=== PATIENT | male | born 1965 | race Caucasian/White ===

== ENCOUNTER → 2019-06-04 | Outpatient (CLI) | payer OTHER ==
--- NOTE | 2019-06-05 19:31 | MR ---
EXAMINATION TYPE: MR Prostate wo/w con DATE OF EXAM: 06/04/2019 COMPARISON: Prostate ultrasound June 05, 2015 IMAGE QUALITY: . INDICATION: Malignant neoplasm of prostate PSA: 5.3 ng/ml on May 30, 2015 increased to 10.2 on March 10, 2019 Recent Biopsy and Date: November 16, 2015 Pathology Report (If Applicable): Right lateral base Mark score 3+3 = 6 TECHNIQUE: Examination was performed using a 3T MRI without an endorectal coil. Multiparametric imaging was perf ormed with T2 multiplanar sequences, axial diffusion weighted imaging and dynamic contrast enhanced i maging, utilizing 9 mL intravenous Gadavist gadolinium contrast. FINDINGS: There is no clinically significant cancer identified. PROSTATE VOLUME: 4.9 cm SI x 4.3 cm AP x 5.3 cm LR Vol= 58.5 cc PSA DENSITY: 7.02 ng/ml/cc Peripheral zone is thought overall normal on the DWI/ADC imaging. Transitional zone shows overall heterogeneity without suspicious areas of hypointensity on T2-weighte d images. Prostatic capsule is maintained. Seminal vesicles felt within normal limits. No suspicious adjacent a denopathy. Bladder shows mild trabeculation and wall thickening. Small fat-containing left inguinal hernia incid entally noted axial image 18. Visualized osseous structures are intact. No concerning pelvic fluid co llection. Disc desiccation and moderate disc space narrowing lumbosacral junction. IMPRESSION: Heterogeneous enlarged prostate consistent with BPH. A focus of clinically significant cancer is not identified. Highest Assessment Category: 1 MRI Stage: T1c N0 M0 based on review of pelvic images. False negative rates for MRI range from 5-20% depending on risk profile. Assessment Categories: 1 ? Very low (clinically significant cancer is highly unlikely to be present) 2 ? Low (clinically significant cancer is unlikely to be present) 3 ? Intermediate (the presence of clinically significant cancer is equivocal) 4 ? High (clinically significant cancer is likely to be present) 5 ? Very high (clinically significant cancer is highly likely to be present) Locations: PZ = peripheral zone; TZ = transition zone CZ=central zone; AFS = anterior fibromuscular stroma a=anterior half (i.e. PZa=anterior half of peripheral zone); pm= posterior medial (i.e PZpm) pl = postero-lateral (i.e. PZpl); p = posterior half (i.e. TZp) ; a = anterior half (i.e TZa or P Za) Other: N=no or no; E= equivocal; Y=yes EPE = extraprostatic extension NVB = neurovascular bundle NA = not applicable/not available
== END | disposition home or self-care (01) ==
LOC: RADMRIMAIN 07:12
PROVIDERS: ATTEND Urology
DX: C61 Malignant neoplasm of prostate (principal)
CPT/HCPCS: 72197; A9585

== ENCOUNTER → 2022-02-07 | Outpatient (CLI) | payer OTHER ==
--- NOTE | 2022-02-07 20:44 | MR ---
EXAMINATION TYPE: MR Prostate wo/w con DATE OF EXAM: 02/07/2022 7:01 AM COMPARISON: MRI 06/03/2026 month ultrasound 06/05/2015. CLINICAL INDICATION:Male, 56 years old with history of C61 PROSTATE CA; TECHNIQUE: Multi-planar, multi-sequence imaging of the pelvis is performed prior to and following the uncomplicated administration of bolus intravenous gadolinium. CONTRAST: 7 Gadavist Interpretive Criteria: PI-RADS v2.1 SERUM PSA: 14.9 09/19/2021 13.1 03/14/2021 12.1 09/15/2019. SURGICAL PATHOLOGY: Biopsy 10/13/2019, left base adenocarcinoma [place] 3+4 = 7 FINDINGS: Prostatic dimensions: 5.4 x 3.5 x 5.5 cm. Ellipsoid Volume: 54.43 (PSA density=0.27 ng/mL/mL) CENTRAL GLAND (Central and Transition Zones/CZ+TZ): Multiple bilateral, heterogenous appearing hypertrophic stromal nodules, without suspicious lesion. M edian lobe hypertrophy with protrusion into the base of the bladder. (PI-RADS 2) PERIPHERAL ZONE (PZ): No evidence of masslike abnormality, or localized perfusional hypervascularity, to further suggest a focus of clinically significant prostate cancer. Minimal curvilinear (PI-RADS 2) SEMINAL VESICLES (SV): Symmetric and unremarkable. PERIPROSTATIC TISSUES: Unremarkable. LYMPH NODES: No enlarged pelvic lymph node. REMAINING PELVIS: Circumferential bladder wall thickening with trabeculations likely secondary to chronic bladder outfl ow obstruction. No abnormal free or organized intrapelvic fluid collection. No pathologic bowel dilation or mural thickening. Left fat-containing inguinal hernia. OSSEOUS STRUCTURES: No suspicious osseous abnormality. IMPRESSION: 1. No specific features for high-risk prostate cancer. Maximum PI-RADS score: 2. 2. Moderate BPH, estimated gland volume 54 mL. 3. No suspicious osseous lesion. No lymphadenopathy. No evidence of prostate adenocarcinoma involving the periprostatic tissues.
== END | disposition home or self-care (01) ==
LOC: RADMRIMAIN 06:02
PROVIDERS: ATTEND Urology
DX: C61 Malignant neoplasm of prostate (principal); N40.0 Benign prostatic hyperplasia without lower urinary tract symptoms
CPT/HCPCS: 72197; A9585

== ENCOUNTER → 2022-10-15 | Outpatient (CLI) | payer OTHER ==
--- NOTE | 2022-10-16 09:11 | CT ---
EXAMINATION TYPE: CT chest w con CT DLP: 333.3 mGycm, Automated exposure control for dose reduction was used. DATE OF EXAM: 10/15/2022 6:27 PM COMPARISON: CT 04/28/2022. CLINICAL INDICATION:Male, 56 years old with history of R91.1 SOLITARY PULMONARY NODULE; PHH, SOLITARY PULMONARY NODULE TECHNIQUE: Multiple axial images were obtained through the chest. Sagittal and coronal reformats were created for review. Contrast used:100ml mL of Isovue 300 with IV Contrast (None if empty) Oral contrast used: (None if empty) FINDINGS: LUNGS/ PLEURA: Few scattered suspected intrafissural lymph nodes are present. Including along the rig ht minor and major fissures. Stable appearance of 5 mm left lower lobe pulmonary nodule image 52 othe r peripheral based nodular densities present and also stable. Left lower lobe calcified granuloma pre sent. Left upper lobe groundglass pulmonary nodule measuring 8 mm is stable. Right intrafissural lymp h node which is measured on prior 10 x 3 mm anteriorly is compatible with intrafissural lymph node. AIRWAY: Patent and unremarkable. HEART: Size within normal limits. MEDIASTINUM: No gross evidence of adenopathy. Small hiatal hernia is present. VASCULATURE: No aortic aneurysm. No central filling defect to suggest pulmonary embolus. No evidence for aortic dissection. MUSCULOSKELETAL: Mild disc degeneration changes are present throughout the thoracolumbar spine. SOFT TISSUES/LYMPH NODES: Unremarkable. LOWER NECK: No significant findings. UPPER ABDOMEN: No significant findings. IMPRESSION: 1. Stable pulmonary nodules no new or enlarging pulmonary nodules. Consider attention follow-up imag ing in 12 months. 2. Small hiatal hernia. 3. No evidence for pulmonary embolus or aortic dissection.
== END | disposition home or self-care (01) ==
LOC: RADCTMAIN 17:23
PROVIDERS: ATTEND Internal Medicine
DX: K44.9 Diaphragmatic hernia without obstruction or gangrene (principal); R91.8 Other nonspecific abnormal finding of lung field
CPT/HCPCS: 71260; Q9967

== ENCOUNTER → 2023-02-27 | Outpatient (CLI) | payer OTHER | END | disposition home or self-care (01) | LOC: LABWHC1 07:36 | PROVIDERS: ATTEND Urology | DX: C61 Malignant neoplasm of prostate (principal) | CPT/HCPCS: 36415; 84153 ==

== ENCOUNTER → 2023-04-02 | Outpatient (CLI) | payer OTHER ==
--- NOTE | 2023-04-06 15:49 | PE ---
EXAMINATION TYPE: PET CT fusion skull to thigh DATE OF EXAM: 04/02/2023 COMPARISON: CT chest 10/15/2022 Prior PET/CT: None HISTORY: Prostate cancer TECHNIQUE: Following the intravenous administration of 6.06 mCi gallium-68 Illucix, whole body image s are performed from the skull base to the midthigh. Images are reviewed on the computer in the negro nal, axial, and sagittal planes. Reconstructed rotating images are created on independent workstatio n and reviewed on the computer. A localization and attenuation correction CT is performed in conjun ction with the PET scan. DLP: 476.2 mGycm SCAN: Initial FINDINGS: NECK: No abnormal uptake THORAX: No abnormal uptake ABDOMEN: No abnormal uptake PELVIS: Subtle mild uptake is within the posterior lateral left prostate. This has an SUV value of 11 .53. OSSEOUS STRUCTURES: No abnormal uptake LOCALIZATION CT: Small hiatal hernia. COMPARISON: None IMPRESSION: 1. Within the prostate likely correlates with the patient's prostate cancer. 2. No suspicious changes to suggest metastatic disease.
== END | disposition home or self-care (01) ==
LOC: RADPETMAIN 09:27
PROVIDERS: ATTEND Urology
DX: C61 Malignant neoplasm of prostate (principal)
CPT/HCPCS: 78815; A9596

== ENCOUNTER → 2023-06-03 | Outpatient (CLI) | payer OTHER ==
[2023-06-03 11:17] LABS: Basophils # (A) 0.02 X 10*3/uL (0.00-0.10); Basophils % (A) 0.4 %; Eosinophils # (A) 0.11 X 10*3/uL (0.04-0.35); Eosinophils % (A) 2.3 %; HCT 44.3 % (39.6-50.0); Immature Grans, Automated 0 %; Lymphocytes # (A) 2.02 X 10*3/uL (0.90-5.00); Lymphocytes % (A) 42.3 %; MCH 29.6 pg (27.0-32.0); MCHC 33.9 g/dL (32.0-37.0); MCV 87.4 FL (80.0-97.0); Mean Platelet Volume 9.2 FL (9.5-12.2); Monocytes # (A) 0.39 X 10*3/uL (0.20-1.00); Monocytes % (A) 8.2 %; NRBC Per 100 WBC 0 X 10*3/uL (0.00-0.01); Neutrophils # (A) 2.24 X 10*3/uL (1.80-7.70); Neutrophils % (A) 46.8 %; Platelet Count 205 X 10*3/uL (140-440); RBC 5.07 X 10*6/uL (4.40-5.60); WBC 4.78 X 10*3/uL (4.50-10.00)
[2023-06-03 11:18] LABS: Appearance,Urine Clear (Clear); Bilirubin,Urine Negative (Negative); Blood,Urine Negative (Negative); Color,Urine Yellow (Yellow); Ketones,Urine Negative (Negative); Nitrite,Urine Negative (Negative); PH, Urine 6.5; Specific Gravity,Urine 1.023 (1.001-1.030); Urobilinogen,Urine 0.2 E.U./DL
[2023-06-03 11:23] LABS: BUN/Creat Ratio 14.73 Ratio (12.00-20.00); Blood Urea Nitrogen 16.2 mg/dL (9.0-27.0); Chloride 103 mmol/L (96-109); Glucose 98 mg/dL (70-110); Potassium 4.4 mmol/L (3.5-5.5); Sodium 139 mmol/L (135-145)
== END | disposition home or self-care (01) ==
LOC: LABWHC1 07:50
PROVIDERS: ATTEND Urology
DX: Z01.812 Encounter for preprocedural laboratory examination (principal); C61 Malignant neoplasm of prostate
CPT/HCPCS: 36415; 80048; 81003; 85025; 86850; 86900; 86901; 87086

== ENCOUNTER 2023-06-12 05:35 | Day surgery (SDC) | payer OTHER ==
--- NOTE | 2023-06-11 10:56 | P.HPIHPCON ---
History of Present Illness H&P Date: 06/11/23 Chief Complaint: Prostate cancer This is a 57-year-old male with history of Hardy 7 prostate cancer, initially was on active surveillance PSA continued to rise, at this point definitive treatment options were discussed with him. Option of radiation versus robotic prostatectomy was discussed in details. Risk and benefit of each approach was discussed. He agreed to proceed with a robotic radical prostatectomy, aware of the risk which includes but not limited to bleeding, infection, urinary incontinence, erectile dysfunction, discussed risk of cancer recurrence and potential of needing additional treatments. Discussed also risk of injury to nearby organs. Risk of anesthesia was also discussed. He understood all the risk and agreed to proceed Consent for Procedure: I have explained the operation/procedure to the patient, including the risks, benefits, side effects, alternative therapies (including not receiving the proposed treatment or service), the likelihood of the patient achieving his/her goals, and potential recuperation problems for the procedure/sedation/analgesia, as well as any blood products, if indicated. I also explained to the patient the risks, benefits and side effects of the alternatives, as well as the risks related to not receiving the proposed procedure, care, treatment, or services. Past Medical History Past Medical History: Cancer, Prostate Disorder Additional Past Medical History / Comment(s): prostate History of Any Multi-Drug Resistant Organisms: None Reported Additional Past Surgical History / Comment(s): sinus surgery Past Anesthesia/Blood Transfusion Reactions: No Reported Reaction Smoking Status: Never smoker - Past Family History Mother Family Medical History: Cancer Additional Family Medical History / Comment(s): lymphoma Father Family Medical History: Cancer Additional Family Medical History / Comment(s): prostate Brother(s) Family Medical History: Cancer Additional Family Medical History / Comment(s): prostate Medications and Allergies Home Medications Medication Instructions Recorded Confirmed Type Escitalopram [Lexapro] 10 mg PO DAILY 06/09/23 06/09/23 History Allergies Allergy/AdvReac Type Severity Reaction Status Date / Time No Known Allergies Allergy Verified 06/09/23 10:09 Surgical - Exam - General no distress, no pain - Eyes normal ocular movement, no pale - ENT normal nares, normal mucosa - Respiratory normal expansion, normal respiratory effort - Abdomen Abdomen: soft, non tender - Psychiatric oriented to time, oriented to person, oriented to place Assessment and Plan Assessment: OR for robotic radical prostatectomy with bilateral pelvic lymp node dissection dissection
[2023-06-12] MEDS ORDERED: MIDAZOLAM 2 MG/2 ML VIAL IV PRN (05:38)
[2023-06-12] MEDS ORDERED: LIDOCAINE 1% (10MG/ML) FOR IV START INTRADERMA PRN (05:38)
[2023-06-12] MEDS ORDERED: HYDROmorphone 0.5 MG/0.5 ML SYRINGE IVP PRN (05:38)
[2023-06-12] MEDS: LACTATED RINGERS 1,000 ML IV SCH (06:15)
[2023-06-12] MEDS: ONDANSETRON 4 MG/2 ML VIAL IVP ONE (06:25)
[2023-06-12] MEDS: DEXAMETHASONE SOD PHOSPHATE 4 MG/ML 1 ML VIAL IV ONE (06:25)
[2023-06-12] MEDS: HEPARIN SODIUM,PORCINE 5,000 UNIT/ML 1 ML VIAL SQ PRN (06:30)
[2023-06-12] MEDS ORDERED: NEOSTIGMINE 1 MG/ML 10 ML VIAL ONE (06:55)
[2023-06-12] MEDS ORDERED: KETAMINE HCL IN 0.9 % NACL 50 MG/5 ML SYRINGE ONE (06:55)
[2023-06-12] MEDS ORDERED: SUCCINYLCHOLINE CHLORIDE 200 MG/10 ML VIAL IV ONE (06:55)
[2023-06-12] MEDS ORDERED: KETOROLAC 15 MG/ML 1 ML VIAL ONE (06:55)
[2023-06-12] MEDS ORDERED: ONDANSETRON 4 MG/2 ML VIAL ONE (06:55)
[2023-06-12] MEDS ORDERED: GLYCOPYRROLATE 0.2 MG/ML 2 ML VIAL ONE (06:55)
[2023-06-12] MEDS ORDERED: MIDAZOLAM 2 MG/2 ML VIAL ONE (06:55)
[2023-06-12] MEDS ORDERED: HYDROmorphone (PF) 1 MG/ML ONE (06:55)
[2023-06-12] MEDS ORDERED: fentaNYL (PF) 50 MCG/ML 2 ML AMP ONE (06:55)
[2023-06-12] MEDS ORDERED: PROPOFOL 10 MG/ML 20 ML VIAL IV ONE (06:55)
[2023-06-12] MEDS ORDERED: ROCURONIUM 10 MG/ML (5 ML VIAL) IV ONE (06:55)
[2023-06-12] MEDS ORDERED: LIDOCAINE 1% INJ 10MG/ML (20 ML MDV) ONE (06:55)
[2023-06-12] MEDS ORDERED: HYDROmorphone 1 MG/ML 1 ML SYRINGE IVP PRN (07:23)
[2023-06-12] MEDS: BUPIVACAINE (PF) 0.25% 30 ML VIAL SQ ONE ×2 (07:34→10:59)
--- NOTE | 2023-06-12 11:20 | P.OP ---
Date of Procedure: 06/12/23 Preoperative Diagnosis: Prostate cancer Postoperative Diagnosis: Same Procedure(s) Performed: Robotic assisted laparoscopic radical prostatectomy, bilateral pelvic lymph node dissection Implants: None Anesthesia: KEEGANA Surgeon: Moy Tierney Estimated Blood Loss (ml): 150 Pathology: other (Prostate, bilateral seminal vesicle, bilateral pelvic lymph nodes) Condition: stable Disposition: PACU Indications for Procedure: This is a 57-year-old male with history of Mark 7(3+4) prostate cancer, initially was on active surveillance PSA continued to rise, at this point definitive treatment options were discussed with him. Option of radiation versus robotic prostatectomy was discussed in details. Risk and benefit of each approach was discussed. He agreed to proceed with a robotic radical prostatectomy, aware of the risk which includes but not limited to bleeding, infection, urinary incontinence, erectile dysfunction, discussed risk of cancer recurrence and potential of needing additional treatments. Discussed also risk of injury to nearby organs. Risk of anesthesia was also discussed. He understood all the risk and agreed to proceed Description of Procedure: After preoperative antibiotics were started, the patient was taken to the operating room. Anesthesia was induced and the patient was placed in a supine position, with adequate padding of the pressure points, shoulders, back, legs and arms. He was then prepped and draped in the standard fashion. A critical pause was performed using two patient identifiers. A 16F cardoza catheter was placed to gravity drainage. A pneumo-peritoneum was created with placement of a Veress needle to 20 mm Hg without complication, and a 8 Fr trocar was placed above the umbillicus. Under direct vision a 8mm robotic ports was placed lateral to each rectus slightly below the camera port. The left iliac fossa 8mm port was placed. The right pharmacist assistant right iliac fossa 12mm port and right paramedian 5mm portwere placed. After the patient was placed in the trendelenberg position, the robot was then docked to the 8mm robotic ports and then each robotic arm and tower was checked in relation to the patient's legs and hands to avoid inadvertent compression. The peritoneal cavity was inspected. An inverted U-shaped incision began laterally to the left medial umbilical ligament and extended high across the midline to the right umbilical ligament. The limbs of the "U" extended to the level of the vasa on both sides. We next developed the preperitoneal space and the space of Retzius. Cautery was used to dissected the bladder away from the prostate. After the anterior bladder neck was incised and the bladder entered the the posterior bladder neck was exposed and the ureteral orifces identified. The posterior bladder neck was then incised and dissected away from the prostate. The vas and the seminal vesicles were now exposed and dissected to their insertions into the prostate and were not spared. The posterior layer of the Denonvillier's fascia was incised to enter santosh the plane between prostate and perirectal fat. Each lateral pedicle were controlled with the vessel sealer. complete Nerve preservation was performed bilaterally The puboprostatic ligament was incised where it inserted into the apex of the prostate and a plane between urethra and dorsal venous complex developed to expose the anterior urethral surface. The anterior wall of the urethra was transected with the cut setting a few millimeters distal to the apex of the prostate. The dorsal vein was ligated using 3-0 V lock bilateral obturator and external iliac lymph node packets were carefully dissected after careful visualization of the hypogastric artery and obturator nerve. There was careful attention paid to hemostasis with judicious use of cautery. The urethrovesical anastomosis was performed . the posterior denovillers was reapproximated using 3-0 V lock. A 9 and 6 inch 3-0 V-Lock suture was used to anastomose the urethra and bladder, starting at the 6:00 posterior position. Mucosa was secured in every stitch, to ensure a mucosa to mucosa anastomosis. The stitch was regularly cinched and the anastomosis tightened. Care was taken to not violate the ureteral orifices. The Cardoza catheter was advanced, the bladder filled, and the anastomosis was tested, as described above. Anastomsis was watertight at 200 mL The periumbilical fascia was closed with 1-0-PDS suture in figure of eight fashion. All ports were closed with a subcuticular 4-0 monocryl and Dermabond. Sponge, instrument, and needle counts were correct at the end of the case x2. All specimens including prostate and lymph nodes were sent to pathology for diagnosis and will be available in a week. The patient tolerated the surgery well and without complication. He awoke without difficulty and was taken to the recovery room in stable condition
[2023-06-12] MEDS: HEPARIN SODIUM,PORCINE 5,000 UNIT/ML 1 ML VIAL SQ SCH (12:38)
[2023-06-12] MEDS: KETOROLAC 15 MG/ML 1 ML VIAL IVP SCH (13:12)
[2023-06-12] MEDS: ESCITALOPRAM 10 MG TAB PO SCH (13:13)
[2023-06-12] MEDS: D5-0.45% NACL WITH KCL 20MEQ/L 1,000 ML IV SCH (16:02)
[2023-06-12] MEDS: ONDANSETRON 4 MG/2 ML VIAL IVP PRN (17:23)
[2023-06-13 07:37] VITALS: BP 128/79; PULSE 67; RESP 18; TEMP 97.8
--- NOTE | 2023-06-13 09:00 | P.DS ---
Providers Attending physician: Moy Tierney MD [facility] Course: The patient was admitted to the hospital 06/12/23 for a robotic-assisted radical prostatectomy by . He underwent this without difficulty. He did well postoperatively. His vital signs are stable. He is afebrile. His abdomen is softer. He is tolerating a regular diet. Urine is clear. He'll be discharged home with a Ambrose catheter. Instructions have been given. He'll be given a prescription of [place]. He'll follow-up in the office on June 21 with he'll contact us with any problems. His condition is good. Patient Condition at Discharge: Good Plan - Discharge Summary Discharge Rx Participant: No New Discharge Prescriptions: New HYDROcodone/APAP 5-325MG [[place] 5-325] 1 tab PO Q4HR PRN #14 tab PRN Reason: Pain No Action Escitalopram [Lexapro] 10 mg PO DAILY Discharge Medication List Escitalopram [Lexapro] 10 mg PO DAILY 06/09/23 [History] HYDROcodone/APAP 5-325MG [[place] 5-325] 1 tab PO Q4HR PRN #14 tab 06/13/23 [Rx] Follow up Appointment(s)/Referral(s): Moy Tierney MD [STAFF PHYSICIAN] - 1 Week Discharge Disposition: HOME SELF-CARE
== END 2023-06-13 12:24 | disposition home or self-care (01) ==
LOC: OR 05:35 → 4SSUR 11:12 → OR 06-13 12:24
PROVIDERS: ATTEND Urology
DX: C61 Malignant neoplasm of prostate (principal); Z80.42 Family history of malignant neoplasm of prostate; Z79.899 Other long term (current) drug therapy
CPT/HCPCS: 38571; 55866; S2900; 88307; 88309; 88341; 88342

== ENCOUNTER → 2024-07-28 | Outpatient (CLI) | payer OTHER ==
--- NOTE | 2024-07-28 10:23 | CA ---
Transthoracic Echo Report Name: Gamaliel Mahajan Age: 58 Gender: M : 1965 Exam Date: 07/28/2024 08:33 Exam Location: [place] Echo Ht (in): 70 Wt (lb): 185 Ordering Physician: Arminda Wiseman MD Attending/Referring Phys: Television Service Engineer Laura Carlisle RDCS Procedure CPT: Indications: R00.2 palpitations Cardiac Hx: Technical Quality: Good Contrast 1: Total Dose (mL): Contrast 2: Total Dose (mL): MEASUREMENTS (Male / Female) Normal Values 2D ECHO LV Diastolic Diameter PLAX 5.7 cm 4.2 - 5.9 / 3.9 - 5.3 cm LV Systolic Diameter PLAX 3.6 cm IVS Diastolic Thickness 1.1 cm 0.6 - 1.0 / 0.6 - 0.9 cm LVPW Diastolic Thickness 1.1 cm 0.6 - 1.0 / 0.6 - 0.9 cm LV Relative Wall Thickness 0.4 RV Internal Dim ED PLAX 3.3 cm LA Systolic Diameter LX 4.0 cm 3.0 - 4.0 / 2.7 - 3.8 cm LV Diastolic Volume MOD 4C 119.9 cm??? LV Systolic Volume MOD 4C 53.6 cm??? LV Ejection Fraction MOD 4C 55.3 % LV Cardiac Index MOD 4C 1976.0 cm???/min???m??? LV Diastolic Length 4C 8.2 cm LV Systolic Length 4C 6.6 cm LV Diastolic Volume MOD 2C 103.5 cm??? LV Systolic Volume MOD 2C 48.3 cm??? LV Ejection Fraction MOD 2C 53.3 % LV Cardiac Index MOD 2C 1642.0 cm???/min???m??? LV Diastolic Length 2C 7.6 cm LV Systolic Length 2C 5.9 cm LA Volume 50.8 cm??? 18 - 58 / 22 - 52 cm??? LA Volume Index 24.8 cm???/m??? 16 - 28 cm???/m??? M-MODE Aortic Root Diameter MM 3.4 cm AV Cusp Separation MM 2.4 cm DOPPLER AV Peak Velocity 132.6 cm/s AV Peak Gradient 7.0 mmHg MV Area PHT 4.7 cm??? Mitral E Point Velocity 84.4 cm/s Mitral A Point Velocity 54.3 cm/s Mitral E to A Ratio 1.6 MV Deceleration Time 161.7 ms FINDINGS Left Ventricle Left ventricular ejection fraction is estimated at 55-60 %. Left ventricular cavity size normal. Mildly increased septal wall thickness. Normal left ventricular wall motion. Right Ventricle Mild right ventricular dilatation. Unable to estimate the right ventricular systolic pressure. Right Atrium Normal right atrial size. No right atrial thrombus or mass seen. Left Atrium Normal left atrial size. No left atrial thrombus or mass present. Mitral Valve Structurally normal mitral valve. No evidence for mitral valve prolapse. No mitral stenosis. Mild mitral regurgitation. Aortic Valve Trileaflet aortic valve. No aortic valve stenosis or regurgitation. Tricuspid Valve Structurally normal tricuspid valve. Trace tricuspid regurgitation. Pulmonic Valve Structurally normal pulmonic valve. Trace pulmonic regurgitation. Pericardium No pericardial effusion. Aorta Normal size aortic root and proximal ascending aorta. CONCLUSIONS Normal LV size and systolic function. Mild mitral regurgitation. Right-sided pressures are not well quantified. Probably normal. No pericardial effusion Previewed by: Dr. Merrill Wagner MD (Electronically Signed) Final Date: 28 Jul 2024 10:22
--- NOTE | 2024-07-28 11:34 | NM ---
EXAMINATION TYPE: NM stress cardiolite complete DATE OF EXAM: 07/28/2024 COMPARISON: Chest CT October 15, 2022. CLINICAL INDICATION: Male, 58 years old with history of R00.2 PALPITATIONS; family history of coronar y artery disease. TECHNIQUE: After the intravenous administration of 9.7 mCi Tc 99m Sestamibi - Rest images obtained 4 5 minutes post injection. The patient exercised using a IRIS protocol and 1 minute prior to peak e xercise was injected with 26.2 mCi Tc 99m Sestamibi - Stress images obtained 15 minutes post injectio n. FINDINGS: Targeted heart rate was achieved during performance of the study. Review of stress and rest SPECT jayden ges demonstrates no distinct perfusion abnormality. Gated analysis shows normal wall motion with an estimated left ventricular ejection fraction of 64 %. IMPRESSION: No scintigraphic evidence for reversible ischemia [facility] Nikki Whaley, , 07/28/2024 11:32 AM
--- NOTE | 2024-07-28 17:31 | CA ---
Exercise Nuclear Stress Test Report Name: Gamaliel Mahajan Exam Date: 07/28/2024 10:27 Exam Location: [place] Stress Ht (in): 70 Wt (lb): 185 BSA: 2.02 Ordering Phys: Arminda Wiseman MD Referring Phys: JOAQUÍN Technologist: TRAM GRANADOS Age: 58 Gender: M : 1965 Procedure CPT: Indications: R00.2 palpitations ICD-10 Codes: Patient History: Medications: LEVIPRO,,, Meds past 24 hrs: Pretest Chest Pain: STRESS TEST Andrew Protocol Exercise Duration (min:sec): 12:[address] Depressions (mm): Angina Score: Wallace Score: Resting HR (bpm): 65 Peak HR (bpm): 146 Resting BP (mmHg): 147 / 98 Peak BP (mmHg): 226 / 93 MPHR: 160 Target HR: 136 % MPHR: 91 METS: 12.1 Total Dose: Peak Dose: Atropine: Double Product: 74666 BP Response: Stress Termination: TARGET HR REACHED/MAX EXERTION Stress Symptoms: NO SYMPTOMS Stress Summary: ECG ANALYSIS Resting ECG: Stress ECG: CONCLUSIONS Baseline EKG revealed normal sinus rhythm without significant ST-T changes. Patient walked on standard Andrew protocol for 12 minutes and achieved a maximal heart rate of 145 bpm which is more than 90% of predicted maximal. No angina no arrhythmia and no ST segment changes to indicate ischemia. This is a negative stress test by EKG criteria with excellent exercise capacity. The nuclear scan results which are more pertinent will be reported by the radiologist Dr. Merrill Wagner MD (Electronically Signed) Final Date: 28 Jul 2024 17:30
== END | disposition home or self-care (01) ==
LOC: RADECHMAIN 08:18
PROVIDERS: ATTEND Internal Medicine
DX: I34.0 Nonrheumatic mitral (valve) insufficiency (principal); R00.2 Palpitations; Z82.49 Family history of ischemic heart disease and other diseases of the circulatory system
CPT/HCPCS: 93017; 93306; 78452; A9500